=== PATIENT | male | born 1995 | race Caucasian/White ===

== ENCOUNTER 2020-12-11 15:44 | Outpatient (REF) | payer BC, SELFPAY ==
[2020-12-12 04:42] LABS: SARS COV2 PCR INHOUSE NEGATIVE (Negative)
== END 2020-12-11 15:45 | disposition home or self-care (01) ==
LOC: HO.LAB 15:44
PROVIDERS: Visit Provider Internal Medicine
DX: Z20.822 Contact with and (suspected) exposure to COVID-19 (principal)
CPT/HCPCS: C9803; U0003